=== PATIENT | female | born 1950 | race Caucasian/White ===

== ENCOUNTER 2024-02-16 07:45 | Outpatient (CLI) | payer MEDICARE, SELFPAY ==
--- NOTE | 2024-02-16 08:45 | ECG_ITS ---
Test Date: 2024-02-16 09:20:13 Measurements Intervals [place] Rate: 64 P: 155 CO: 159 QRS: -28 QRSD: 87 T: 40 QT: 386 QTc: 401 Interpretive Statements SINUS RHYTHM MODERATE VOLTAGE CRITERIA FOR LVH, CONSIDER NORMAL VARIANT [MEETS CRITERIA IN ONE OF: R(aVL), S(V1), R(V5), R(V5/V6)+S(V1)] POSSIBLE LATERAL MYOCARDIAL INFARCTION [30 ms Q WAVE IN I/aVL/V5/V6], OF INDETERMINATE AGE BASELINE ARTIFACT IN THE PRECORDIAL LEADS AFFECT INTERPRETATION No previous ECG available for comparison Electronically Signed On 02-20-2024 11:20:29 [employer] STRIPPER by Kevon May M.D.
[2024-02-16 10:14] LABS: Basophils Absolute Auto 0.1 K/mm3 (0.0-0.1); Basophils Percent Auto 0.9 % (0.2-1.2); Eosinophils Absolute Auto 0.1 K/mm3 (0-0.3); Eosinophils Percent Auto 1.3 % (0-4.4); Hematocrit 41.3 % (37.0-47.0); Hemoglobin 13.3 g/dL (12.0-15.0); Immature Granulocyte Absolute 0.02 K/mm3 (0.00-0.031); Immature Granulocyte Percent A 0.3 % (0-0.5); Lymphocytes Absolute Auto 1.46 K/mm3 (0.9-3.2); Lymphocytes Percent Auto 23.1 % (18.3-44.2); Mean Corpuscular HGB Conc 32.2 g/dl (32-36); Mean Corpuscular Hemoglobin 28.7 pg (26-34); Mean Corpuscular Volume 89.2 fl (80-100); Mean Platelet Volume 10.7 fl (7.4-10.4); Monocytes Absolute Auto 0.4 K/mm3 (0.1-0.6); Neutrophils Absolute Auto 4.3 K/mm3 (1.3-6.7); Neutrophils Percent Auto 67.4 % (45.5-73.1); Platelet Count Result 224 k/mm3 (150-375); Red Blood Count 4.63 M/mm3 (4.2-5.4); Red Cell Distribution Width 13.9 % (11.5-14.5); White Blood Count 6.3 K/mm3 (4.5-10.0)
[2024-02-16 10:30] LABS: Alanine Aminotransferase 34 U/L (6-35); Albumin Level 4.2 g/dL (3.5-5.1); Alkaline Phosphatase 72 U/L (38-126); Anion Gap 5 mmol/L (4-12); Aspartate Amino Transferase 33 U/L (14-36); Bilirubin,Total 0.8 mg/dL (0.2-1.3); Blood Urea Nitrogen 18 mg/dL (7-17); Calcium 10.1 mg/dL (8.4-10.2); Carbon Dioxide 28 mmol/L (22-30); Chloride 108 mmol/L (98-107); Estimated Glomerular Filt Rate > 60; Glucose 95 mg/dL (65-110); Potassium 3.9 mmol/L (3.4-5.0); Sodium 141 mmol/L (137-145)
[2024-02-16 10:34] LABS: INR 0.9; Prothrombin Time 12.8 Seconds (11.1-14.7)
[2024-02-16 10:35] LABS: Partial Thromboplastin Time 26.5 Seconds (22.3-36.8)
== END 2024-02-16 07:46 | disposition home or self-care (01) ==
LOC: ANHSURGERY 07:54
PROVIDERS: PCP Family Medicine; Visit Provider Urology
DX: Z01.818 Encounter for other preprocedural examination (principal); N99.3 Prolapse of vaginal vault after hysterectomy; I10 Essential (primary) hypertension
CPT/HCPCS: 36415; 80053; 85025; 85610; 85730; 86850; 86900; 86901; 93005

== ENCOUNTER 2024-02-27 00:19 | Day surgery (SDC) | payer MEDICARE, SELFPAY ==
--- NOTE | 2024-02-16 07:51 | PC.NURSE ---
Report to the Outpatient Waiting Room, entrance under the green pavilion located off [facility], at time __9 am on date _02/27/24 . Planned Procedure Time: __11 am .? Time changes happen often and if your time is changed the preop area will call you the afternoon before. - You and your visitor will be asked to self-screen and do not enter if you have any COVID symptoms. Please call surgeon if you need to reschedule. - A mask is optional within the hospital at this time. Patients may have clear liquids (water, carbonated beverages, clear teas, apple juice) until 3 hours prior to surgery( 8am) with a maximum of 20 ounces. - No food from midnight until time of surgery and no smoking. This includes no chewing gum, candy or mints. Take only the following medications with a SIP of water on the morning of surgery: __METOPROLOL DO NOT STOP ANY OF YOUR OTHER PRESCRIPTION MEDICATIONS PRIOR TO SURGERY EXCEPT THE FOLLOWING Medications to discontinue per physician ___ASPIRIN/NAPROXEN PER DR ASH HOLD ALL VITAMINS 3 DAYS PRE OP.LAST DOSE02/23/24 Please no make-up, nail yoruba, hairspray, perfume, deodorant, or body powder the day of surgery.? No jewelry (including any body piercings) or valuables the day of surgery, leave them at home.? Please take a shower or bath the night before, or the morning of, surgery with an antibacterial soap.? Wear comfortable, loose fitting clothing.? Children are encouraged to wear pajamas. - Jewelry must be removed prior to entering the operating room.? Rings and piercings that are not removed may be cut off. - The hospital will not accept responsibility for valuables.? - Please leave all valuables, including medications, at home the day of surgery. If you are going home after surgery, a licensed flatbed driver must drive you home.? - NO public transportation without another adult if you receive anesthesia. - We recommend that an adult stay with you for 24 hours following discharge. - We also recommend that you do not drive, make important decision, drink alcoholic beverages, or take any drugs that were not prescribed by your health care provider for at least 24 hours after your discharge time. Follow any additional instructions given to you from your surgeon. VERBAL AND WRITTEN instructions given to ___PATIENT and asked if any additional questions and then verbalized understanding. Patient advised to call surgeon office or pre surgery nurse liaison [phone] if any additional questions.
[2024-02-16 08:29] VITALS: BMI 29.8
[2024-02-16 08:46] VITALS: BP 188/90; PULSE 71; RESP 18; TEMP 36.9; O2SAT 99
--- NOTE | 2024-02-23 16:16 | P.HP_ITS ---
H&P: HPI History of Present Illness Date/Time: 02/23/24 16:16 Chief Complaint: Uterine prolapse Narrative: 74 year female admitted for supracervical hysterectomy salpingo-oophorectomy the. This would be a combination case with Dr. Boyd. She has uterine prolapse and pain discomfort risks and benefits reviewed in full Review of Systems Review of Systems: All systems reviewed & are unremarkable except as noted in HPI and below PMFSH Social History Social History Smoking status: Never smoker Living arrangements: with family Spiritual care concerns: No Meds Home Medications and Allergies Home Medications ?Medication ?Instructions ?Recorded ?Confirmed ?Type acetaminophen 500 mg capsule 500 mg PO Q6H PRN pain 02/16/24 02/16/24 History allopurinol 100 mg tablet 50 mg PO DAILY 02/16/24 02/16/24 History aspirin 81 mg tablet,delayed 81 mg PO DAILY 02/16/24 02/16/24 History release calcium 600 mg (as 2 tablet PO BID 02/16/24 02/16/24 History carbonate)-vitamin D3 5 mcg (200 unit) tablet denosumab 60 mg/mL subcutaneous 60 mg subcut [id number] 02/16/24 02/16/24 History syringe (Prolia) metoprolol succinate 25 mg 25 mg PO DAILY 02/16/24 02/16/24 History tablet,extended release 24 hr naproxen 250 mg tablet 250 mg PO BID PRN pain 02/16/24 02/16/24 History pantoprazole 40 mg tablet,delayed 40 mg PO DAILY 02/16/24 02/16/24 History release simvastatin 20 mg tablet 20 mg PO DAILY 02/16/24 02/16/24 History valsartan 320 mg tablet 320 mg PO DAILY 02/16/24 02/16/24 History Allergies Allergy/AdvReac Type Severity Reaction Status Date / Time quinapril AdvReac Unknown COUGH Verified 02/16/24 08:00 Exam Const: General: cooperative, healthy appearing and comfortable Nutritional Appearance: overweight Orientation/consciousness: oriented to person, oriented to place and oriented to time HENMT: Head: normal to inspection Resp: Effort & Inspection: normal respiratory effort Cardio: Rate: regular rate Rhythm: regular rhythm Heart sounds: S1 nor mal heart sound present and S2 normal heart sound present GI: Inspection: normal to inspection : External Female Exam: normal external appearance Speculum Exam - Vagina: normal appearance of the vagina Speculum Exam - Cervix: normal eleazar earance of the cervix (Cervical and uterine prolapse noted) Bimanual exam- vagina & uterus: soft Bimanual Exam- Adnexa, other: normal adnexae Assessment and Plan Assessment and plan (1) Uterine prolapse: Code(s): N81.4 - Uterovaginal prolapse, unspecified Status: Acute Plan Proceed with robotic supracervical hysterectomy bilateral salpingo-oophorectomy
--- NOTE | 2024-02-24 10:37 | P.HP_ITS ---
H&P: HPI History of Present Illness Date/Time: 02/24/24 10:37 Chief Complaint: pelvic organ prolapse Narrative: she has uterine prolapse. No stress incontinence by history. Previous stress incontinence operation. Has occult stress incontinence noted on urodynamics with prolapse reduction Review of Systems Review of Systems: All systems reviewed & are unremarkable except as noted in HPI and below [facility] Social History Social History Smoking status: Never smoker Living arrangements: with family Spiritual care concerns: No Meds Home Medications and Allergies Home Medications ?Medication ?Instructions ?Recorded ?Confirmed ?Type acetaminophen 500 mg capsule 500 mg PO Q6H PRN pain 02/16/24 02/16/24 History allopurinol 100 mg tablet 50 mg PO DAILY 02/16/24 02/16/24 History aspirin 81 mg tablet,delayed 81 mg PO DAILY 02/16/24 02/16/24 History release calcium 600 mg (as 2 tablet PO BID 02/16/24 02/16/24 History carbonate)-vitamin D3 5 mcg (200 unit) tablet denosumab 60 mg/mL subcutaneous 60 mg subcut [id number] 02/16/24 02/16/24 History syringe (Prolia) metoprolol succinate 25 mg 25 mg PO DAILY 02/16/24 02/16/24 History tablet,extended release 24 hr naproxen 250 mg tablet 250 mg PO BID PRN pain 02/16/24 02/16/24 History pantoprazole 40 mg tablet,delayed 40 mg PO DAILY 02/16/24 02/16/24 History release simvastatin 20 mg tablet 20 mg PO DAILY 02/16/24 02/16/24 History valsartan 320 mg tablet 320 mg PO DAILY 02/16/24 02/16/24 History Allergies Allergy/AdvReac Type Severity Reaction Status Date / Time quinapril AdvReac Unknown COUGH Verified 02/16/24 08:00 Exam Narrative: cystocele beyond the introitus with significant loss of apical support minimal urethral mobility Assessment and Plan Assessment and plan (1) Uterine prolapse: Code(s): N81.4 - Uterovaginal prolapse, unspecified Status: Acute (2) SHAYNA (stress urinary incontinence, female): Code(s): N39.3 - Stress incontinence (female) (male) Status: Acute Plan plan for robotic Sacral colpopexy. offered urethral sling as well due to findings on urodynamic
[2024-02-27] VITALS (9 sets, daily range): BP systolic 132–176; BP diastolic 71–95; PULSE 56–99; RESP 12–18; TEMP 35.9–36.6; O2SAT 95–100
--- NOTE | 2024-02-27 06:56 | WPDHPUPDATE1 ---
History and Physical Update Update Date/Time: 02/27/24 06:56 History and Physical has been reviewed, including an updated exam of the patient. There are NO changes in the patient's condition. Risks, benefits, and alternatives have been discussed and questions answered. Patient agrees to proceed with procedure.
--- NOTE | 2024-02-27 07:15 | WPDHPUPDATE1 ---
History and Physical Update Update Date/Time: 02/27/24 07:15 History and Physical has been reviewed, including an updated exam of the patient. There are NO changes in the patient's condition. Risks, benefits, and alternatives have been discussed and questions answered. Patient agrees to proceed with procedure.
[2024-02-27] MEDS: ACETAMINOPHEN 500 MG TABLET 1000 MG PO (09:10)
[2024-02-27] MEDS: LACTATED RINGERS 1,000 ML 30 ML IV CONT ×2 (09:15→13:10)
[2024-02-27] MEDS: KETOROLAC 15 MG/ML VIAL (*BKC) IV PUSH ×3 (09:20→21:39)
--- NOTE | 2024-02-27 09:55 | P.PNAN_ITS ---
Anes - Initial Pre Proc Eval Procedure: Operation Date: 02/27/24 11:00 Proposed Procedures p Robotic Sacrocolpopexy, Urethral Sling - Imer Branch MD s Robotic Supracervical Hysterectomy with Bilateral Salpingo-oophorectomy - Wero Rivera MD Date/Time: 02/27/24 09:55 Surgeon: Imer Branch MD Pre Op Diagnosis: vaginal prolapse, complete uterovaginal prolapse Patient Data Age: 74 Gender: F Height: 1.71 m Weight: 86.8 kg Last Vital Signs Temp 97.8 F 02/27/24 09:00 Pulse 84 02/27/24 09:00 Resp 18 02/27/24 09:00 BP 169/95 H 02/27/24 09:00 Pulse Ox 100 02/27/24 09:00 O2 Del Method Room Air 02/27/24 09:00 Allergies Allergy/AdvReac Type Severity Reaction Status Date / Time quinapril AdvReac Unknown COUGH Verified 02/27/24 09:19 Home Medications ?Medication ?Instructions ?Recorded ?Confirmed ?Type acetaminophen 500 mg capsule 500 mg PO Q6H PRN pain 02/16/24 02/16/24 History allopurinol 100 mg tablet 50 mg PO DAILY 02/16/24 02/27/24 History aspirin 81 mg tablet,delayed 81 mg PO DAILY 02/16/24 02/27/24 History release calcium 600 mg (as 2 tablet PO BID 02/16/24 02/27/24 History carbonate)-vitamin D3 5 mcg (200 unit) tablet denosumab 60 mg/mL subcutaneous 60 mg subcut [id number] 02/16/24 02/16/24 History syringe (Prolia) metoprolol succinate 25 mg 25 mg PO DAILY 02/16/24 02/27/24 History tablet,extended release 24 hr naproxen 250 mg tablet 250 mg PO BID PRN pain 02/16/24 02/27/24 History pantoprazole 40 mg tablet,delayed 40 mg PO DAILY 02/16/24 02/27/24 History release simvastatin 20 mg tablet 20 mg PO DAILY 02/16/24 02/27/24 History valsartan 320 mg tablet 320 mg PO DAILY 02/16/24 02/27/24 History Patient hx anesthesia problems: none Family hx anesthesia problems: none Results Review: All pre-operative results and documents have been reviewed as part of the pre- operative evaluation. [facility] Social History Social History Smoking status: Never smoker Living arrangements: with family Spiritual care concerns: No Anes - Eval Final PreProcedure Day of Procedure 02/27/24 09:55 Patient weight: overweight Heart: regular rate and rhythm Lungs: clear to auscultation Airway: Mallampati scale class II Neurological: alert and oriented Last oral intake: >/= 8 hours ASA classification: II Emergent: no Anesthetic plan: proceed Anesthesia type and monitoring: general ETT and standard monitoring Results Review: All pre-operative results and documents have been reviewed as part of the pre- operative evaluation. HTN, hyperlipidemia. Informed Consent: The patient's anesthetic plan and its attendant risks and benefits were discussed with the patient/family/POA. Questions were solicited and answers provided to the satisfaction of the patient/family/POA.
[2024-02-27] MEDS: metroNIDAZOLE 500 MG/ISO 100ML 500 MG/100 ML BAG 100 MG IVPB ×2 (11:00→20:17)
[2024-02-27] MEDS: ceFAZolin 2 GM/D5W 50 ML 2 GM/50 ML BAG IVPB (11:00)
[2024-02-27] MEDS: BUPIVACAINE/EPINEPHRINE 0.5% 30 ML VIAL INFILTRATE (11:02)
--- NOTE | 2024-02-27 11:28 | P.OP_ITS ---
Procedure Note - Detailed Date of Procedure 02/27/24 Pre-op Diagnosis vaginal prolapse, complete uterovaginal prolapse Post-op Diagnosis Same Procedure Performed Robotic supracervical hysterectomy and bilateral salpingo-oophorectomy Surgeon Wero Rivera MD Anesthesia General Indications 74-year-old female with uterine prolapse Findings Uterine prolapse. Benign-appearing ovaries and tubes Description of Procedure Patient was prepped draped in the normal sterile fashion placed in the dorsal lithotomy position. Under excellent general trach anesthesia weighted speculum placed in posterior fornix vagina. Anterior lip of cervix grasped with single- tooth tenaculum. [place]'s cannula inserted the cervix attached to the single- tooth to be used later for uterine manipulation. After emptying the bladder clear urine the weighted speculum was removed and the gloves were changed. On Dr. Branch proceeded to dock the robot please see his operative report for full details. Attention was turned to the console once the robot was docked. The left round ligament was grasped, burned, cut. Anteriorly a bladder flap was formed by sharply dissecting the peritoneum away from the uterine cervix caudally to the opposite round ligament which was clamped, burned, cut. Next the left infundibulopelvic structure was skeletonized to remove the left ovary and tube was clamped, burned, cut brought to level of previously cut round. In similar fashion on the right the infundibulum pelvic structure on the right was skeletonized clamped burned cut and brought to level of previous cut round ligament thus removing the right ovary and tube. Next the left cardinal broad ligaments were skeletonized clamping burning cutting hugging the cervix uterus until the large tortuous uterine vessels could be seen on the left these were individually clamped, burned, cut. In similar fashion on the right the cardinal broad ligaments were serially skeletonized clamping burning cutting and hugging the cervix uterus until the uterine vessels could be seen on the right. These were individually clamped, burned, cut. Hemostasis was assured and blanching of the uterus was noted. A supracervical hysterectomy was undertaken and this uterus tubes and ovaries placed in an Endo-Catch. Blood loss at this point was 5cc Dr. Branch began his portion of the procedure at that point there were no immediate complications up to this point Estimated Blood Loss 5 Drains No Packing No Pathology Yes Complications No immediate complications Condition Stable Disposition No change
--- NOTE | 2024-02-27 11:32 | PM.DS ---
DS: Admitting Diagnosis Discharge Date 02/28/2024 Admitting Diagnosis Uterine prolapse DS: Discharge Diagnosis Discharge Diagnosis (1) Uterine prolapse: Code(s): N81.4 - Uterovaginal prolapse, unspecified Status: Acute (2) SHAYNA (stress urinary incontinence, female): Code(s): N39.3 - Stress incontinence (female) (male) Status: Acute DS: Summary Hospital Course Reason for hospitalization: Patient was admitted on 02/27/2024 for robotic supracervical hysterectomy bilateral salpingo-oophorectomy robotic sacral colpopexy and sling. Hospital Course: Patient's hospital course unremarkable. She remained afebrile. She was up, voiding without difficulty, eating regular diet, ambulating, and generally without complaints. Time Spent with Patient Time attestation: Total time spent providing and/or coordinating discharge services: Exam Const: General: cooperative, healthy appearing and comfortable Nutritional Appearance: average body habitus Orientation/consciousness: oriented to person, oriented to place and oriented to time Resp: Effort & Inspection: normal respiratory effort Cardio: Rate: regular rate Rhythm: regular rhythm Heart sounds: S1 normal heart sound present and S2 normal heart sound present GI: Inspection: normal to inspection and incision (Wounds are clean dry and intact) Discharge Plan Discharge Patient Disposition: Home, Self-Care Discharge Instructions: No lifting >20lb, exercise for 6 weeks No tub bath or pool for 2 weeks no intercourse 6 weeks Patient Language: Mauritanian Stand Alone Forms: General Discharge Instructions Follow-up/Referrals: Wero Marks MD [Physician] - (6 weeks) Discharge Medications: New hydrocodone-acetaminophen 5-325 mg tablet 1 tablet PO Q6H PRN (Reason: pain) Qty: 20 0RF docusate sodium [Colace] 100 mg capsule 100 mg PO BID Qty: 40 0RF Continued allopurinol 100 mg tablet 50 mg PO DAILY pantoprazole 40 mg tablet,delayed release (DR/EC) 40 mg PO DAILY metoprolol succinate 25 mg tablet extended release 24 hr 25 mg PO DAILY simvastatin 20 mg tablet 20 mg PO DAILY valsartan 320 mg tablet 320 mg PO DAILY Prolia 60 mg/mL syringe 60 mg subcut [id number] acetaminophen 500 mg capsule 500 mg PO Q6H PRN (Reason: pain) calcium carbonate-vitamin D3 600 mg-5 mcg (200 unit) tablet 2 tablet PO BID Held naproxen 250 mg tablet 250 mg PO BID PRN (Reason: pain) Hold Instructions: Resume on 02/29/24. aspirin 81 mg tablet,delayed release (DR/EC) 81 mg PO DAILY Hold Instructions: Resume on 02/29/24.
--- NOTE | 2024-02-27 13:05 | P.OP_ITS ---
Procedure Note - Detailed Date of Procedure 02/27/24 Pre-op Diagnosis vaginal prolapse, complete uterovaginal prolapse, occult stress incontinence Post-op Diagnosis Same Procedure Performed Robotic assisted laparoscopic sacral colpopexy Urethral sling Cystoscopy Surgeon Imer Branch MD Anesthesia General Indications a woman with uterine prolapse as well as occult stress incontinence. She desires surgical correction. She is here for the above. She understands risks of bleeding, infection, diskitis, damage to surrounding organs, bowel injury, bowel obstruction, mesh related complications including exposure and extrusion, postoperative voiding dysfunction including incontinence and retention, need for ancillary procedures, dyspareunia, recurrence of prolapse, and other perioperative intraoperative postoperative complications. She agrees to proceed. Findings See below Description of Procedure She was correctly identified. Informed consent obtained. She from the operating room. She was given general anesthesia. She was given appropriate perioperative antibiotics. She was placed a low lithotomy position. Pressure points were padded. A time-out performed. I marked out the skin 3 fingerbreadths cephalad to the umbilicus. I anesthetized the skin. I incised the skin. I dissected down to the fascia. I grasped the fascia with Rashel clamps. I entered the fascia sharply in a Kasper type technique. I placed sutures for later fascial closure. I placed a midline trocar. I examined the abdomen. There is no sign of any injury. Under direct vision I placed 2 additional trocars in the right upper quadrant and 2 additional trocars the left upper quadrant. She was placed in steep Trendelenburg. The robot was docked. Her edging machine catcher completed their portion of the procedure. Please see that operative report for details. I then sat at the console. The Sizer in the vagina created plane on the anterior and posterior vaginal wall. I took great care not to injure the vagi na, bladder, or rectum. I introduced the mesh into the abdomen. I sewed the anterior leaflet of mesh on the anterior vaginal wall. I sewed the posterior leaflet of mesh on the posterior vaginal wall. This was done with several sutures of 2 0 Sweeden-Hector. I reflected the colon laterally. I opened the posterior peritoneum over the sacral promontory. I carried this into the cul-de-sac. I freed up the edges for later retroperitonealization. I located the anterior longitudinal ligament the sacrum. I cleaned off all fatty tissues. I then tensioned my mesh appropriately. I did a vaginal exam the bedside. I assured prolapse reduction without undue tension. I then sewed the proximal leaflet of mesh onto the anterior longitudinal ligament of the sacrum with 4 sutures of 2 0 Sweeden-Hector. I then used a 2 0 Monocryl to completely and meticulously retroperitonealized all mesh. I allowed the colon to go back to its normal anatomic location. There is no sign of any impingement. The specime n was then removed. All ports removed. Fascia was tied down. Skin was closed with Monocryl and surgical glue. She was repositioned and prepped for urethral sling. I marked out the inner thigh incisions. I anesthetized the skin and made the incisions. I then anesthetized the anterior vaginal wall at the mid urethra. I made a 1 cm incision. I dissected out laterally taking great care not to injure the refilled vaginal wall. I passed the helical trocars. I did this 1st on the left and then on the right. This was done from the thigh incision towards the vaginal incision. Sling was connected to the trocars and brought out the thigh incision. I tensioned the sling appropriately. I cut and the plastic sheaths. I closed the incision with 2 0 Vicryl. I then performed cystoscopy. There was no tumors or surgical artifact. Both ureters were seen to excrete clear yellow urine. There is no surgical artifact in the bladder or urethra. I cut the excess sling material. Close incision with glue. She was awakened and transferred to PACU in stable condition. Implants Sacral colpopexy mesh Urethral sling Estimated Blood Loss 20 Packing No Pathology None sent Complications No immediate complications Condition Stable Disposition PACU
[2024-02-27] MEDS: fentaNYL CITRATE INJ (*CRX) 100 MCG/2 ML VIAL 25 MCG IV PUSH ×4 (13:42→14:21)
[2024-02-27] MEDS: ONDANSETRON INJ 4 MG/2 ML VIAL IV PUSH (14:02)
[2024-02-27] MEDS: KCL 20 MEQ/D5/0.45% SOD CHL 1,000 ML 100 ML IV CONT (15:22)
[2024-02-27] MEDS: diphenhydrAMINE HCl INJ 50 MG/ML VIAL 25 MG IV PUSH (15:25)
--- NOTE | 2024-02-27 15:53 | ADMGEN ---
This patient, Judi Mcdaniels, was admitted to OB 2nd Floor Room 283-00. Patient/family oriented to hospital policies and general routines including ID bracelet, bed and alarms, visiting hours, pain management, procedures, bathroom and other care routines, personal items, smoking policy, room service/diet, and visiting hours. Information on how to activate the Rapid Response Team has been discussed. Patient/Family are encouraged to report perceived risks to care and to ask questions if they do not understand what they are told or what they should do.
[2024-02-27] MEDS: ceFAZolin 1 GM/NS 50 ML 1 GM/50 ML BAG IVPB (19:14)
[2024-02-28 00:30] VITALS: BP 123/59; PULSE 78; RESP 14; TEMP 37.2; O2SAT 98
[2024-02-28] MEDS: metroNIDAZOLE 500 MG/ISO 100ML 500 MG/100 ML BAG 100 MG IVPB (03:29)
[2024-02-28] MEDS: KETOROLAC 15 MG/ML VIAL (*BKC) IV PUSH (03:29)
[2024-02-28 04:00] VITALS: BP 134/80; PULSE 79; RESP 14; TEMP 37.2; O2SAT 98
--- NOTE | 2024-02-28 06:15 | PC.NURSE ---
0615 This RN saline locked patient's IV fluids (KCl 20meq/D5/0.45% Sod Chl, 1000ml bag), she is tolerating PO and drinking water and juice. Previous RN did not scan the last bag pulled at 2130 on the previous shift. Total amount of fluid given from this bag was 263 mls.
--- NOTE | 2024-02-28 07:10 | P.PNOB_ITS ---
PEER TUTOR - A/P Assessment and plan (1) Uterine prolapse: Code(s): N81.4 - Uterovaginal prolapse, unspecified Status: Acute (2) SHAYNA (stress urinary incontinence, female): Code(s): N39.3 - Stress incontinence (female) (male) Status: Acute Plan home Postoperative Procedures: Procedures Operation Date: 02/27/24 11:00 Actual Procedure Side Surgeon p Robotic Sacrocolpopexy, Urethral Sling Imer Branch MD s Robotic Supracervical Hysterectomy with Bilateral Salpingo-oophorectomy Bilateral Wero Rivera MD Time Spent With Patient Time: Total time spent is greater than 50% in coordination of care (as documented) at patient's floor/unit and/or counseling patient: Time with patient: less than 15 minutes PEER TUTOR- PN:Subj Post-Op Subjective Date/time seen: 02/28/24 07:10 Subjective: patient reports feeling better, patient has no complaints, patient desires discharge, pain is well controlled and patient is tolerating oral intake Review of Systems Review of Systems: All systems reviewed & are unremarkable except as noted in HPI and below Exam Const: General: cooperative, healthy appearing and comfortable Nutritional Appearance: average body habitus Orientation/consciousness: oriented to person, oriented to place and oriented to time Resp: Effort & Inspection: normal respiratory effort Cardio: Rate: regular rate Rhythm: regular rhythm Heart sounds: S1 normal heart sound present and S2 normal heart sound present GI: Inspection: normal to inspection and incision (cdi) PEER TUTOR - PN: Obj Data Vital Signs Vital Signs: Vital Signs - 24 hr 02/27/24 09:00 02/27/24 13:10 02/27/24 13:25 Temperature 97.8 F 97.1 F L Pulse Rate 84 81 65 Respiratory Rate 18 16 14 Blood Pressure 169/95 H 176/85 H 157/89 H Pulse Oximetry 100 100 100 Oxygen Delivery Room Air Simple Face Mask Simple Face Mask Oxygen Flow Rate 8 8 02/27/24 13:40 02/27/24 13:55 02/27/24 14:10 Temperature Pulse Rate 58 L 58 L 56 L Respiratory Rate 14 12 14 Blood Pressure 160/75 H 160/77 H 160/71 H Pulse Oximetry 100 98 99 Oxygen Delivery Simple Face Mask Room Air Room Air Oxygen Flow Rate 8 02/27/24 14:25 02/27/24 14:50 02/27/24 15:31 Temperature 96.7 F L Pulse Rate 63 61 Respiratory Rate 12 14 Blood Pressure 166/75 H 140/79 Pulse Oximetry 95 96 Oxygen Delivery Room Air Room Air Oxygen Flow Rate 02/27/24 19:30 02/28/24 00:30 02/28/24 04:00 Temperature 97.9 F 99 F 98.9 F Pulse Rate 99 78 79 Respiratory Rate 14 14 14 Blood Pressure 132/85 123/59 L 134/80 Pulse Oximetry 98 98 98 Oxygen Delivery Oxygen Flow Rate Intake/Output Intake/Output: Intake & Output 02/25/24 02/26/24 02/27/24 02/28/24 23:59 23:59 23:59 23:59 Intake Total 700 863 Output Total 600 900 Balance 100 -37 Meds/Results Medications: Active Medications Generic Name Dose Route Start Last Admin Trade Name Freq PRN Reason Stop Dose Admin Acetaminophen 650 mg 02/27/24 14:38 Acetaminophen 325 Mg Tablet PO Q4H PRN Mild Pain (1-3) or Fever Hydrocodone Bitart/Acetaminophen 1 tab 02/27/24 14:38 Hydrocodone/Acetaminophen (*Crx) 5-325 Mg Tablet PO Q4H PRN Pain Rated 4-5 Allopurinol 50 mg 02/28/24 09:00 Allopurinol 50 Mg Tablet PO DAILY JOHN Cephalexin HCl 500 mg 02/28/24 09:00 Cephalexin 500 Mg Capsule PO QID JOHN Diphenhydramine HCl 25 mg 02/27/24 14:38 02/27/24 15:25 Diphenhydramine Hcl Inj 50 Mg/Ml Vial IV PUSH 25 mg Q6H PRN Administration Itching Docusate Sodium 100 mg 02/28/24 09:00 Docusate Sodium 100 Mg Capsule PO DAILY JOHN Enoxaparin Sodium 30 mg 02/28/24 09:00 Enoxaparin 30 Mg/0.3 Ml Syringe SUB-Q DAILY JOHN Potassium Chloride/Dextrose/Sod Cl 1,000 mls @ 100 mls/hr 02/27/24 14:38 02/28/24 06:15 Kcl 20 Meq/D5/0.45% Sod Chl IV CONT Infused .Q10H JOHN Infusion Metronidazole 500 mg in 100 mls @ 100 mls/hr 02/27/24 20:00 01/14/25 03:29 Flagyl 500 Mg/Iso Soln 100 Ml IVPB 100 mls/hr Q8HR JOHN Administration Ketorolac Tromethamine 15 mg 02/27/24 14:38 02/28/24 03:29 Ketorolac 15 Mg/Ml Vial (*Bkc) IV PUSH 15 mg Q8H PRN Administration Pain Rated 5 or Less Metoprolol Succinate 25 mg 02/28/24 09:00 Metoprolol Succinate Ext Rel 25 Mg Tabcr PO DAILY [facility] Morphine Sulfate 2 mg 02/27/24 14:38 Morphine Sulfate (*Crx) 2 Mg/Ml Inj IV PUSH Q2H PRN Pain Rated 6 or Greater Ondansetron HCl 4 mg 02/27/24 14:38 Ondansetron Inj 4 Mg/2 Ml Vial IV PUSH Q6H PRN Nausea And Vomiting Pantoprazole Sodium 40 mg 02/28/24 09:00 Pantoprazole 40 Mg Tablet PO DAILY [facility] Simvastatin 20 mg 02/28/24 09:00 Simvastatin 20 Mg Tablet PO DAILY [facility] Valsartan 320 mg 02/28/24 09:00 Valsartan 160 Mg Tablet PO QAM [facility] Zolpidem Tartrate 5 mg 02/27/24 14:38 Zolpidem Tartrate (*Crx) 5 Mg Tablet PO HS PRN Insomnia
[2024-02-28 07:35] VITALS: BP 130/74; PULSE 70; RESP 18; TEMP 37; O2SAT 99
--- NOTE | 2024-02-28 07:48 | WPDANESPN ---
Anes - Prog Note Post-Op Date/Time: 02/28/24 07:48 Cardiovascular status: normal Respiratory status: normal Airway patency: baseline Mental status: baseline Post-Op hydration status: normal Vital Signs: Last Vital Signs Temp 37.2 C 02/28/24 04:00 Pulse 79 02/28/24 04:00 Resp 14 02/28/24 04:00 BP 134/80 02/28/24 04:00 Pulse Ox 98 02/28/24 04:00 O2 Del Method Room Air 02/27/24 15:31 O2 Flow Rate 8 02/27/24 13:40 Pain Score (VAS): 2/10 I/O: Intake & Output 02/27/24 02/27/24 02/28/24 15:59 23:59 07:59 Intake Total 450 250 863 Output Total 200 400 900 Balance 250 -150 -37 Post-procedural complaints: none Patient Feedback: Patient satisfied with anesthetic care.
[2024-02-28 09:29] VITALS: PULSE 80
[2024-02-28] MEDS: allopurinoL 50 MG TABLET PO (09:29)
[2024-02-28] MEDS: CEPHALEXIN 500 MG CAPSULE PO (09:29)
[2024-02-28] MEDS: PANTOPRAZOLE 40 MG TABLET PO (09:29)
[2024-02-28] MEDS: METOPROLOL SUCCINATE EXT REL 25 MG TABCR PO (09:29)
[2024-02-28] MEDS: SIMVASTATIN 20 MG TABLET PO (09:29)
[2024-02-28] MEDS: DOCUSATE SODIUM 100 MG CAPSULE PO (09:29)
[2024-02-28] MEDS: VALSARTAN 160 MG TABLET 320 MG PO (09:30)
[2024-02-28] MEDS: ENOXAPARIN 30 MG/0.3 ML SYRINGE SUB-Q (09:33)
== END 2024-02-28 10:56 | disposition home or self-care (01) ==
LOC: ANHSURGERY 10:05 → ANHOB2 14:42
PROVIDERS: Obstetrics & Gynecology; PCP Family Medicine; Visit Provider Urology
PROC: (CPT 57425; principal; 2024-02-27 11:00)
PROC: (CPT 58542; 2024-02-27 11:00)
DX: N39.3 Stress incontinence (female) (male) (principal); N81.3 Complete uterovaginal prolapse; N84.0 Polyp of corpus uteri; D25.1 Intramural leiomyoma of uterus; D25.0 Submucous leiomyoma of uterus; D25.2 Subserosal leiomyoma of uterus; L72.0 Epidermal cyst; N80.03 Adenomyosis of the uterus; N88.8 Other specified noninflammatory disorders of cervix uteri; Z79.82 Long term (current) use of aspirin; Z79.1 Long term (current) use of non-steroidal anti-inflammatories (NSAID)
CPT/HCPCS: 58542; 57425; 57288; S2900 ×2; 88307; 99199; A9270; C1771; C1781; J0690; J1100; J1171; J1200; J1650; J1836; J1885; J2405; J2704; J3010; J3480; J7030; J7120